=== PATIENT | female | born 1975 | race Caucasian/White ===

== ENCOUNTER 2018-01-28 16:09 | Inpatient (IN) ==
[2018-01-28 17:46] LABS: Baso % (Auto) 0.4 % (0.0-2.0); Eos % (Auto) 0.7 % (0.0-4.0); Hematocrit 39.1 % (35.0-46.0); Lymph # (Auto) 1.5 th/mm3 (1.0-4.8); Lymph % (Auto) 31.5 % (9.0-44.0); Mean Corpuscular HGB Conc 33.2 % (32.0-36.0); Mean Corpuscular Hemoglobin 26.4 pg (27.0-34.0); Mean Corpuscular Volume 79.7 fL (80.0-100.0); Mean Platelet Volume 8.1 fL (7.0-11.0); Mono # (Auto) 0.2 th/mm3 (0.0-0.9); Mono % (Auto) 4.1 % (0.0-8.0); Neut # (Auto) 3.1 th/mm3 (1.8-7.7); Neut % (Auto) 63.3 % (16.0-70.0); Platelet Count 430 th/mm3 (150-450); Red Blood Count 4.91 mil/mm3 (4.00-5.30); Red Cell Distribution Width 13.8 % (11.6-17.2); White Blood Count 4.9 th/mm3 (4.0-11.0)
[2018-01-28] MEDS ORDERED: LORazepam 1 MG Tablet PO ONE (18:03)
[2018-01-28 18:08] LABS: Alanine Aminotransferase 28 U/L (10-53); Albumin 4.2 g/dL (3.4-5.0); Anion Gap 5 meq/L (5-15); Aspartate Aminotransferase 20 U/L (15-37); Blood Urea Nitrogen 9 mg/dL (7-18); Calcium 8.7 mg/dL (8.5-10.1); Carbon Dioxide 25.7 meq/L (21.0-32.0); Chloride 113 meq/L (98-107); Glomerular Filtration Rate 70 mL/min (>89); Glucose,Random 100 mg/dL (74-106); Potassium 3.8 meq/L (3.5-5.1); Sodium 144 meq/L (136-145)
[2018-01-28 18:18] LABS: Alkaline Phosphatase 45 U/L (45-117)
--- NOTE | 2018-01-28 19:08 | ED ---
HPI General Chief Complaint: Psychiatric Symptoms Stated Complaint: Psych/EWPD Time Seen by Provider: 01/29/18 12:28 Source: patient Mode of arrival: ambulatory Limitations: no limitations History of Present Illness HPI Narrative: 42-year-old female presents to the emergency department under Barragan act. She is having suicidal thoughts about hanging herself. She has history of suicidal attempt by overdosing and hanging. Her daughter attempted suicide about 3 weeks ago and this is causing her more stress and depression. Reports feeling depressed, anxious. Denies illicit drug use or alcohol use. Reports tobacco use. Denies hallucinations. Symptoms are moderate to severe in severity. Onset unknown. Duration unknown. No known relieving factors. Takes Xanax for her anxiety, and last took it 2 days ago. Says she feels very anxious at this time. Situation aggravated by daughters attempted suicide, her mother has cancer, and her own personal health issues. Is requesting a nicotine patch. Denies chest pain, shortness of breath, abdominal pain, nausea , vomiting, change in urine or stool. Denies other significant past medical history. No known allergies. No primary care provider. No psychiatrist. Has no other medical complaints. No other modifying factors or associated signs and symptoms. Related Data Home Medications Medication Instructions Recorded Confirmed No Known Home Medications 01/28/18 01/28/18 Allergies Allergy/AdvReac Type Severity Reaction Status Date / Time No Known Allergies Allergy Unverified 01/28/18 16:28 Review of Systems ROS Unobtainable All other systems reviewed negative except as stated in HPI [facility] Medical History Medical History History of hysterectomy (Acute) Patient denies medical problems (Acute) Social History Social History Substance History: Active Abuse and Past History Second Hand Smoke Exposure: No Smoking Status: Current every day smoker Tobacco Type: Cigarettes How Often Do You Have a Drink Containing Alcohol: Never Recent Travel in [place] within the Last 8 Weeks: Yes Recent Out of Country Travel within the Last 8 Weeks: No Substance Abuse Detail Benzodiazepines: Substance Use Status: Active Route Used Substance Abuse: By Mouth Last Used: 01/25/18 Substance Abuse Comment: SEVERE ANXIETY/PTSD NOT PRESCRIBED XANAX Reason for Use: Calm Down Opiates: Substance Use Status: Sustained Remission Route Used Substance Abuse: By Mouth Last Used: 7 YEARS Immunization History Tetanus Immunization: Unsure Hx Influenza Vaccine This Season: No Exam Narrative Exam Narrative: GENERAL: Well-nourished, well-developed female patient , in no acute distress; tearful and crying SKIN: Warm and dry. HEAD: Atraumatic. Normocephalic. EYES: Pupils equal and round. ENT: Mucosa pink and moist. NECK: Supple. Trachea midline. CARDIOVASCULAR: Regular rate and rhythm. No murmur appreciated. RESPIRATORY: No accessory muscle use. Clear to auscultation. Breath sounds equal bilaterally. GASTROINTESTINAL: Abdomen soft, non-tender, nondistended. Hepatic and splenic margins not palpable. Bowel sounds are active 4 quadrants. MUSCULOSKELETAL: No obvious deformities. No clubbing. No cyanosis. No edema. BACK: No CVA tenderness. NEUROLOGICAL: Awake and alert. Oriented 3. No obvious cranial nerve deficits. Motor grossly within normal limits. Normal speech. Moves all extremities. 5/5 strength to all extremities. PSYCHIATRIC: No delusional thought processes. No hallucinations. Course Initial Documented Vital Signs Temperature 98.4 F 01/28/18 16:18 Pulse Rate 80 01/28/18 16:18 Respiratory Rate 16 01/28/18 16:18 Blood Pressure 120/71 01/28/18 16:18 Pulse Oximetry 99 01/28/18 16:18 Last Documented Vital Signs Temperature 98.0 F 02/01/18 18:00 Pulse Rate 70 02/01/18 18:00 Respiratory Rate 16 02/01/18 18:00 Blood Pressure 110/60 02/01/18 18:00 Pulse Oximetry 99 02/01/18 18:00 Medical Decision Making [facility] Narrative Medical decision making narrative: Patient presents under a Barragan act. Physical examination and vital signs are essentially unremarkable. Patient has no medical complaints to report. Psych screen has been ordered. If the laboratory results are unremarkable, the patient will be medically cleared for psychiatric evaluation and disposition. Differential Diagnosis Differential Diagnosis: Depression, anxiety, stress, suicidal ideation, medical clearance for psychiatric admission Lab Data Result diagrams: 01/28/18 16:26 01/30/18 08:26 Lab Results 01/28/18 01/28/18 01/28/18 Range/Units 16:26 16:26 16:26 WBC 4.9 (4.0-11.0) th/mm3 RBC 4.91 (4.00-5.30) mil/mm3 Hgb 13.0 (11.6-15.3) gm/dL Hct 39.1 (35.0-46.0) % MCV 79.7 L (80.0-100.0) fL MCH 26.4 L (27.0-34.0) pg MCHC 33.2 (32.0-36.0) % RDW 13.8 (11.6-17.2) % Plt Count 430 (150-450) th/mm3 MPV 8.1 (7.0-11.0) fL Neut % (Auto) 63.3 (16.0-70.0) % Lymph % (Auto) 31.5 (9.0-44.0) % [place] % (Auto) 4.1 (0.0-8.0) % Eos % (Auto) 0.7 (0.0-4.0) % Baso % (Auto) 0.4 (0.0-2.0) % Neut # (Auto) 3.1 (1.8-7.7) th/mm3 Lymph # (Auto) 1.5 (1.0-4.8) th/mm3 [place] # (Auto) 0.2 (0.0-0.9) th/mm3 Eos # (Auto) 0.0 (0.0-0.4) th/mm3 Baso # (Auto) 0.0 (0.0-0.2) th/mm3 WBC Differential . Differential Comment Auto diff final Sodium 144 (136-145) meq/L Potassium 3.8 (3.5-5.1) meq/L Chloride 113 H (98-107) meq/L Carbon Dioxide 25.7 (21.0-32.0) meq/L Anion Gap 5 (5-15) meq/L BUN 9 (7-18) mg/dL Creatinine 0.88 (0.50-1.00) mg/dL Estimated GFR 70 L (>89) mL/min Random Glucose 100 (74-106) mg/dL Hemoglobin A1c (4.3-6.0) % Calcium 8.7 (8.5-10.1) mg/dL Total Bilirubin 0.3 (0.2-1.0) mg/dL AST 20 (15-37) U/L ALT 28 (10-53) U/L Alkaline Phosphatase 45 (45-117) U/L Total Protein 8.0 (6.4-8.2) g/dL Albumin 4.2 (3.4-5.0) g/dL Triglycerides (42-150) mg/dL Cholesterol (120-200) mg/dL LDL Cholesterol, Calc (0-99) mg/dL HDL Cholesterol (40.0-60.0) mg/dL Cholesterol/HDL Ratio Ratio TSH 0.310 L (0.358-3.740) uIU/mL Urine Color (Yellw/Straw) Urine Clarity (Clear) Urine pH (5.0-8.5) Ur Specific [place] (1.002-1.035) Urine Protein (Neg-Trace) mg/dL Urine Glucose (UA) (Negative) mg/dL Urine Ketones (Negative) mg/dL Urine Occult Blood (Negative) Urine Nitrate (Negative) Urine Bilirubin (Negative) Urine Urobilinogen (Less than 2) mg/dL Ur Leukocyte Esterase (Negative) Urine RBC (0-3) /hpf Urine WBC (0-5) /hpf Ur Squamous Epith Cells (0-5) /hpf Urine Bacteria (None) /hpf Urine Mucus (Occasional) /lpf Micro UA Comment Urine Culture Comments Salicylates 4.5 (2.8-20.0) mg/dL Urine Opiates Screen (Neg) Acetaminophen Less than 2.0 L (10.0-30.0) mcg/mL Ur Barbiturates Screen (Neg) Ur Amphetamines Screen (Neg) U Benzodiazepines Scrn (Neg) Urine Cocaine Screen (Neg) U Cannabinoids Screen (Neg) Serum Alcohol Less than 3 (0-5) mg/dL 01/28/18 01/28/18 01/30/18 Range/Units 20:47 20:47 08:26 WBC (4.0-11.0) th/mm3 RBC (4.00-5.30) mil/mm3 Hgb (11.6-15.3) gm/dL Hct (35.0-46.0) % MCV (80.0-100.0) fL MCH (27.0-34.0) pg MCHC (32.0-36.0) % RDW (11.6-17.2) % Plt Count (150-450) th/mm3 MPV (7.0-11.0) fL Neut % (Auto) (16.0-70.0) % Lymph % (Auto) (9.0-44.0) % [place] % (Auto) (0.0-8.0) % Eos % (Auto) (0.0-4.0) % Baso % (Auto) (0.0-2.0) % Neut # (Auto) (1.8-7.7) th/mm3 Lymph # (Auto) (1.0-4.8) th/mm3 [place] # (Auto) (0.0-0.9) th/mm3 Eos # (Auto) (0.0-0.4) th/mm3 Baso # (Auto) (0.0-0.2) th/mm3 WBC Differential Differential Comment Sodium 143 (136-145) meq/L Potassium 3.6 (3.5-5.1) meq/L Chloride 111 H (98-107) meq/L Carbon Dioxide 25.5 (21.0-32.0) meq/L Anion Gap 7 (5-15) meq/L BUN 11 (7-18) mg/dL Creatinine 0.81 (0.50-1.00) mg/dL Estimated GFR 78 L (>89) mL/min Random Glucose 87 (74-106) mg/dL Hemoglobin A1c (4.3-6.0) % Calcium 8.8 (8.5-10.1) mg/dL Total Bilirubin (0.2-1.0) mg/dL AST (15-37) U/L ALT (10-53) U/L Alkaline Phosphatase (45-117) U/L Total Protein (6.4-8.2) g/dL Albumin (3.4-5.0) g/dL Triglycerides 119 (42-150) mg/dL Cholesterol 197 (120-200) mg/dL LDL Cholesterol, Calc 135 H (0-99) mg/dL HDL Cholesterol 38.1 L (40.0-60.0) mg/dL Cholesterol/HDL Ratio 5.17 Ratio TSH (0.358-3.740) uIU/mL Urine Color Yellow (Yellw/Straw) Urine Clarity Hazy H (Clear) Urine pH 6.0 (5.0-8.5) Ur Specific [place] 1.018 (1.002-1.035) Urine Protein Negative (Neg-Trace) mg/dL Urine Glucose (UA) 50 (Negative) mg/dL Urine Ketones Trace H (Negative) mg/dL Urine Occult Blood Negative (Negative) Urine Nitrate Negative (Negative) Urine Bilirubin Negative (Negative) Urine Urobilinogen Less than 2 (Less than 2) mg/dL Ur Leukocyte Esterase Negative (Negative) Urine RBC 13 H (0-3) /hpf Urine WBC 3 (0-5) /hpf Ur Squamous Epith Cells 3 (0-5) /hpf Urine Bacteria Many H (None) /hpf Urine Mucus Many H (Occasional) /lpf Micro UA Comment Culture indicated Urine Culture Comments Culture indicated Salicylates (2.8-20.0) mg/dL Urine Opiates Screen Neg (Neg) Acetaminophen (10.0-30.0) mcg/mL Ur Barbiturates Screen Neg (Neg) Ur Amphetamines Screen Neg (Neg) U Benzodiazepines Scrn Pos H (Neg) Urine Cocaine Screen Neg (Neg) U Cannabinoids Screen Neg (Neg) Serum Alcohol (0-5) mg/dL 01/30/18 Range/Units 08:26 WBC (4.0-11.0) th/mm3 RBC (4.00-5.30) mil/mm3 Hgb (11.6-15.3) gm/dL Hct (35.0-46.0) % MCV (80.0-100.0) fL MCH (27.0-34.0) pg MCHC (32.0-36.0) % RDW (11.6-17.2) % Plt Count (150-450) th/mm3 MPV (7.0-11.0) fL Neut % (Auto) (16.0-70.0) % Lymph % (Auto) (9.0-44.0) % [place] % (Auto) (0.0-8.0) % Eos % (Auto) (0.0-4.0) % Baso % (Auto) (0.0-2.0) % Neut # (Auto) (1.8-7.7) th/mm3 Lymph # (Auto) (1.0-4.8) th/mm3 [place] # (Auto) (0.0-0.9) th/mm3 Eos # (Auto) (0.0-0.4) th/mm3 Baso # (Auto) (0.0-0.2) th/mm3 WBC Differential Differential Comment Sodium (136-145) meq/L Potassium (3.5-5.1) meq/L Chloride (98-107) meq/L Carbon Dioxide (21.0-32.0) meq/L Anion Gap (5-15) meq/L BUN (7-18) mg/dL Creatinine (0.50-1.00) mg/dL Estimated GFR (>89) mL/min Random Glucose (74-106) mg/dL Hemoglobin A1c 5.3 (4.3-6.0) % Calcium (8.5-10.1) mg/dL Total Bilirubin (0.2-1.0) mg/dL AST (15-37) U/L ALT (10-53) U/L Alkaline Phosphatase (45-117) U/L Total Protein (6.4-8.2) g/dL Albumin (3.4-5.0) g/dL Triglycerides (42-150) mg/dL Cholesterol (120-200) mg/dL LDL Cholesterol, Calc (0-99) mg/dL HDL Cholesterol (40.0-60.0) mg/dL Cholesterol/HDL Ratio Ratio TSH (0.358-3.740) uIU/mL Urine Color (Yellw/Straw) Urine Clarity (Clear) Urine pH (5.0-8.5) Ur Specific [place] (1.002-1.035) Urine Protein (Neg-Trace) mg/dL Urine Glucose (UA) (Negative) mg/dL Urine Ketones (Negative) mg/dL Urine Occult Blood (Negative) Urine Nitrate (Negative) Urine Bilirubin (Negative) Urine Urobilinogen (Less than 2) mg/dL Ur Leukocyte Esterase (Negative) Urine RBC (0-3) /hpf Urine WBC (0-5) /hpf Ur Squamous Epith Cells (0-5) /hpf Urine Bacteria (None) /hpf Urine Mucus (Occasional) /lpf Micro UA Comment Urine Culture Comments Salicylates (2.8-20.0) mg/dL Urine Opiates Screen (Neg) Acetaminophen (10.0-30.0) mcg/mL Ur Barbiturates Screen (Neg) Ur Amphetamines Screen (Neg) U Benzodiazepines Scrn (Neg) Urine Cocaine Screen (Neg) U Cannabinoids Screen (Neg) Serum Alcohol (0-5) mg/dL Discharge Plan Discharge Disposition Patient Disposition: 30 Still Patient Discharge Condition Condition: Stable Physicians Team ED Provider: Lux Doran ED Midlevel Provider: Elis Griffin Primary Care Provider: Primary Care Anita Driver Attending Provider: Prashant Chaney Other Providers: Utilizer, High Service Discharge Interventions Interventions: ED Discharge Assessment Last Done: 01/29/18 14:22 Status ED Status: Left Department Discharge Information Discharge Date/Time: 01/29/18 14:23
[2018-01-28 21:07] LABS: Bacteria,Urine Many /hpf; Bilirubin,Urine Negative (Negative); Clarity,Urine Hazy (Clear); Color,Urine Yellow (Yellw/Straw); Glucose,Urine (UA) 50 mg/dL (Negative); Leukocyte Esterase,Urine Negative (Negative); Mucus,Urine Many /lpf (Occasional); Nitrite,Urine Negative (Negative); Specific Gravity,Urine 1.018 (1.002-1.035); Squamous Epithelial Cell,Urine 3 /hpf (0-5)
[2018-01-28 21:11] LABS: Amphetamine Screen,Urine Neg (Neg); Barbiturate Screen,Urine Neg (Neg); Cannabinoid Screen,Urine Neg (Neg); Cocaine Screen,Urine Neg (Neg)
[2018-01-28 21:13] LABS: Opiate Screen,Urine Neg (Neg)
[2018-01-29] MEDS ORDERED: Aluminum/Magnesium/Simethacone Susp 30 ML UDC PO PRN (13:49)
--- NOTE | 2018-01-29 14:49 | ED ---
HPI - Psych - General Source: patient Mode of arrival: ambulatory Limitations: no limitations - History of Present Illness MD complaint: suicidal ideation, feels depressed Onset (ago): week(s) Duration: getting worse History of same: Yes Relieving factors: none Exacerbating factors: drug use (Xanax) Context: recent drug abuse, significant life stressor Associated psychiatric symptoms: depression, suicidal ideation - General Chief Complaint: Psychiatric Symptoms Stated Complaint: Psych/EWPD Time Seen by Provider: 01/29/18 12:28 - History of Present Illness HPI Narrative: This is a 42-year-old single female who presents to this facility under Barragan act for calling suicide hotline reporting suicidal ideation. She is previously unknown to this facility. Reviewed electronic medical record, labs, discuss case with staff. Patient's toxicology screen is positive for benzodiazepines. Patient was evaluated in her room and J pod. She was found lying on her bed awake, alert, and oriented 4. Is disheveled and tearful. Her mood is sad and her affect is sad as well. She endorses suicidal ideation. She denies homicidal ideation, auditory or visual hallucinations. I can elicit no delusional material. There is no internal stimulation or evidence of thought blocking. This patient reports that she is "severely depressed". Additionally, she states that she has been taking Xanax which he obtains from the street for approximately 1 year now. 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 She advises that she lives with her mother had breast cancer. She indicates numerous external stressors of late including: Her mother's medical condition, hysterectomy 3 months ago, recent suicide attempt by her daughter, and the of her approximately 2 years ago. She reports previous suicide attempt by hanging when she was approximately 30 years old. She reports diagnoses of depression, anxiety, and PTSD. She states that she receives SSI. However, she denies any outpatient treatment since moving to [place] approximately 4 years ago. She reports anhedonia, insomnia, and decreased appetite. She is extremely tearful and tremulous throughout the interview. She reports family suicide attempts and diagnoses on both sides. (Katarina Turpin) - Related Data Home Medications Medication Instructions Recorded Confirmed No Known Home Medications 01/28/18 01/28/18 Allergies Allergy/AdvReac Type Severity Reaction Status Date / Time No Known Allergies Allergy Unverified 01/28/18 16:28 Review of Systems All other systems reviewed negative except as stated in HPI PMFSH - History History Provided By: Patient - Medical History Medical History: Medical History (Last Reviewed 01/29/18 @ 14:44 by ALICIA Gonzalez) History of hysterectomy Patient denies medical problems - Surgical History Surgical History: Surgical History (Last Reviewed 01/29/18 @ 14:44 by ALICIA Gonzalez) H/O tubal ligation - Tobacco History Second Hand Smoke Exposure: Yes Tobacco Use In Past 30 Days: Yes (1PPD) Smoking Status: Current every day smoker Tobacco Type: Cigarettes - Alcohol History How Often Do You Have a Drink Containing Alcohol: Never - Substance Use History Substance History: Active Abuse - Substance Use Type Benzodiazepines Status: Active Route Used: By Mouth Last Used: 01/25/18 Reason for Use: Calm Down Comment: SEVERE ANXIETY/PTSD. NOT PRESCRIBED XANAX Opiates Status: Sustained Remission Route Used: By Mouth Last Used: 7 YEARS - Travel History Recent Travel in the [facility] Within the Last 8 Weeks: Yes Recent Travel Out of the Country Within the Last 8 Weeks: No - Immunization History Tetanus Immunization: Unsure Hx Influenza Vaccine This Season: No Psychiatric History - Psychiatric History Psychiatric Treatment History: History of Psychiatric Treatment History of Inpatient Treatment: Yes Firearms in Home: No - Legal History Denies (Katarina Turpin) - Family Psychiatric History Reports that her daughter recently attempted suicide. (Katarina Turpin) Physical Exam - General Limitations: no limitations Initial Documented Vital Signs Temperature 98.4 F 01/28/18 16:18 Pulse Rate 80 01/28/18 16:18 Respiratory Rate 16 01/28/18 16:18 Blood Pressure 120/71 01/28/18 16:18 Pulse Oximetry 99 01/28/18 16:18 Last Documented Vital Signs Temperature 99.1 F 01/28/18 22:50 Pulse Rate 61 01/28/18 22:50 Respiratory Rate 16 01/28/18 18:20 Blood Pressure 118/73 01/28/18 22:50 Pulse Oximetry 99 01/28/18 22:50 MDM - Psych - Diagnosis (1) Major depressive disorder Status: Acute (2) Benzodiazepine withdrawal Status: Acute (3) Suicidal ideation Status: Acute - Lab Data Result diagrams: 01/28/18 16:26 01/28/18 16:26 - MDM Narrative Medical decision making narrative: While this patient is currently withdrawing from Xanax, she also reports extensive mental health history for which she is receiving Social Security disability. Due to her contacting the suicide hotline and her continuing endorsement of suicidal ideation and out of an over abundance of caution I am admitting her for further evaluation and treatment as deemed necessary to a locked inpatient psychiatric unit. I obtained consent and have ordered as needed Atarax as it seems to be helping her with her withdrawal symptoms. (Katarina Turpin) - Lab Data Lab Results 01/28/18 01/28/18 01/28/18 Range/Units 16:26 16:26 16:26 WBC 4.9 (4.0-11.0) th/mm3 RBC 4.91 (4.00-5.30) mil/mm3 Hgb 13.0 (11.6-15.3) gm/dL Hct 39.1 (35.0-46.0) % MCV 79.7 L (80.0-100.0) fL MCH 26.4 L (27.0-34.0) pg MCHC 33.2 (32.0-36.0) % RDW 13.8 (11.6-17.2) % Plt Count 430 (150-450) th/mm3 MPV 8.1 (7.0-11.0) fL Neut % (Auto) 63.3 (16.0-70.0) % Lymph % (Auto) 31.5 (9.0-44.0) % [place] % (Auto) 4.1 (0.0-8.0) % Eos % (Auto) 0.7 (0.0-4.0) % Baso % (Auto) 0.4 (0.0-2.0) % Neut # (Auto) 3.1 (1.8-7.7) th/mm3 Lymph # (Auto) 1.5 (1.0-4.8) th/mm3 [place] # (Auto) 0.2 (0.0-0.9) th/mm3 Eos # (Auto) 0.0 (0.0-0.4) th/mm3 Baso # (Auto) 0.0 (0.0-0.2) th/mm3 WBC Differential . Differential Comment Auto diff final Sodium 144 (136-145) meq/L Potassium 3.8 (3.5-5.1) meq/L Chloride 113 H (98-107) meq/L Carbon Dioxide 25.7 (21.0-32.0) meq/L Anion Gap 5 (5-15) meq/L BUN 9 (7-18) mg/dL Creatinine 0.88 (0.50-1.00) mg/dL Estimated GFR 70 L (>89) mL/min Random Glucose 100 (74-106) mg/dL Calcium 8.7 (8.5-10.1) mg/dL Total Bilirubin 0.3 (0.2-1.0) mg/dL AST 20 (15-37) U/L ALT 28 (10-53) U/L Alkaline Phosphatase 45 (45-117) U/L Total Protein 8.0 (6.4-8.2) g/dL Albumin 4.2 (3.4-5.0) g/dL TSH 0.310 L (0.358-3.740) uIU/mL Urine Color (Yellw/Straw) Urine Clarity (Clear) Urine pH (5.0-8.5) Ur Specific [place] (1.002-1.035) Urine Protein (Neg-Trace) mg/dL Urine Glucose (UA) (Negative) mg/dL Urine Ketones (Negative) mg/dL Urine Occult Blood (Negative) Urine Nitrate (Negative) Urine Bilirubin (Negative) Urine Urobilinogen (Less than 2) mg/dL Ur Leukocyte Esterase (Negative) Urine RBC (0-3) /hpf Urine WBC (0-5) /hpf Ur Squamous Epith Cells (0-5) /hpf Urine Bacteria (None) /hpf Urine Mucus (Occasional) /lpf Micro UA Comment Urine Culture Comments Salicylates 4.5 (2.8-20.0) mg/dL Urine Opiates Screen (Neg) Acetaminophen Less than 2.0 L (10.0-30.0) mcg/mL Ur Barbiturates Screen (Neg) Ur Amphetamines Screen (Neg) U Benzodiazepines Scrn (Neg) Urine Cocaine Screen (Neg) U Cannabinoids Screen (Neg) Serum Alcohol Less than 3 (0-5) mg/dL 01/28/18 01/28/18 Range/Units 20:47 20:47 WBC (4.0-11.0) th/mm3 RBC (4.00-5.30) mil/mm3 Hgb (11.6-15.3) gm/dL Hct (35.0-46.0) % MCV (80.0-100.0) fL MCH (27.0-34.0) pg MCHC (32.0-36.0) % RDW (11.6-17.2) % Plt Count (150-450) th/mm3 MPV (7.0-11.0) fL Neut % (Auto) (16.0-70.0) % Lymph % (Auto) (9.0-44.0) % [place] % (Auto) (0.0-8.0) % Eos % (Auto) (0.0-4.0) % Baso % (Auto) (0.0-2.0) % Neut # (Auto) (1.8-7.7) th/mm3 Lymph # (Auto) (1.0-4.8) th/mm3 [place] # (Auto) (0.0-0.9) th/mm3 Eos # (Auto) (0.0-0.4) th/mm3 Baso # (Auto) (0.0-0.2) th/mm3 WBC Differential Differential Comment Sodium (136-145) meq/L Potassium (3.5-5.1) meq/L Chloride (98-107) meq/L Carbon Dioxide (21.0-32.0) meq/L Anion Gap (5-15) meq/L BUN (7-18) mg/dL Creatinine (0.50-1.00) mg/dL Estimated GFR (>89) mL/min Random Glucose (74-106) mg/dL Calcium (8.5-10.1) mg/dL Total Bilirubin (0.2-1.0) mg/dL AST (15-37) U/L ALT (10-53) U/L Alkaline Phosphatase (45-117) U/L Total Protein (6.4-8.2) g/dL Albumin (3.4-5.0) g/dL TSH (0.358-3.740) uIU/mL Urine Color Yellow (Yellw/Straw) Urine Clarity Hazy H (Clear) Urine pH 6.0 (5.0-8.5) Ur Specific [place] 1.018 (1.002-1.035) Urine Protein Negative (Neg-Trace) mg/dL Urine Glucose (UA) 50 (Negative) mg/dL Urine Ketones Trace H (Negative) mg/dL Urine Occult Blood Negative (Negative) Urine Nitrate Negative (Negative) Urine Bilirubin Negative (Negative) Urine Urobilinogen Less than 2 (Less than 2) mg/dL Ur Leukocyte Esterase Negative (Negative) Urine RBC 13 H (0-3) /hpf Urine WBC 3 (0-5) /hpf Ur Squamous Epith Cells 3 (0-5) /hpf Urine Bacteria Many H (None) /hpf Urine Mucus Many H (Occasional) /lpf Micro UA Comment Culture indicated Urine Culture Comments Culture indicated Salicylates (2.8-20.0) mg/dL Urine Opiates Screen Neg (Neg) Acetaminophen (10.0-30.0) mcg/mL Ur Barbiturates Screen Neg (Neg) Ur Amphetamines Screen Neg (Neg) U Benzodiazepines Scrn Pos H (Neg) Urine Cocaine Screen Neg (Neg) U Cannabinoids Screen Neg (Neg) Serum Alcohol (0-5) mg/dL
[2018-01-29] MEDS ORDERED: Haloperidol Inj 5 MG/ML Ampul IV.PUSH PRN (15:44)
[2018-01-29] MEDS: LORazepam 1 MG Tablet PO PRN ×2 (16:23→21:23)
[2018-01-29] MEDS: Naproxen 250 MG Tablet PO PRN (21:13)
[2018-01-30 09:08] LABS: Calcium 8.8 mg/dL (8.5-10.1); Carbon Dioxide 25.5 meq/L (21.0-32.0); Potassium 3.6 meq/L (3.5-5.1)
[2018-01-30 09:12] LABS: Chol/HDL Ratio 5.17 Ratio; HDL Cholesterol 38.1 mg/dL (40.0-60.0)
[2018-01-30] MEDS: LORazepam 1 MG Tablet PO PRN ×2 (09:17→21:21)
[2018-01-30] MEDS: Naproxen 250 MG Tablet PO PRN ×2 (09:17→21:20)
[2018-01-30] MEDS: buPROPion 100 MG ER 12 HR Tablet PO SCH ×2 (12:15→21:20)
[2018-01-30 17:35] LABS: Hemoglobin A1c 5.3 % (4.3-6.0)
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
[2018-01-30] MEDS ORDERED: Acetaminophen 500 MG Tablet PO SCH (22:11)
[2018-01-30] MEDS ORDERED: Acetaminophen 500 MG Tablet PO ONE (23:30)
[2018-01-31] MEDS: buPROPion 100 MG ER 12 HR Tablet PO SCH ×2 (10:06→20:52)
[2018-01-31] MEDS: Naproxen 250 MG Tablet PO PRN ×2 (10:33→20:52)
[2018-01-31] MEDS: LORazepam 1 MG Tablet PO PRN ×2 (10:34→13:42)
--- NOTE | 2018-01-31 13:21 | P.PNPSY ---
Subjective Remarks: Patient seen for follow, chart reviewed. Discussion nursing staff reported the patient had difficulty sleeping last evening had received Atarax at 3M which helped, patient scoring 10 on CIWA protocol. Patient was found lying hospital bed noted B, cooperative. Patient states that she has difficulty sleeping last evening and that she is taking Benadryl in the past has not helped but that the Atarax did assist in getting her to sleep last evening. Patient states her mood has been "up and down" stating feeling disgusted with herself reflecting on unmet achievements as well as feeling that she is going through a "midlife crisis". Patient denies any side effects from current medications and that her mood today is "blah" and continues to endorse suicide ideations at this time. Patient was encouraged to participate in groups and activities as well as maintain personal hygiene which she agreed able to try to do today. Review of Systems All other systems reviewed negative except as stated in HPI Mental Status Examination Appearance: Disheveled Consciousness: Alert Orientation: x4 Motor Activity: Normal gait Speech: Unremarkable Language: Adequate Fund of Knowledge: Inadequate Attention and Concentration: Adequate Memory: Unremarkable Mood: Sad Affect: Sad, Other (Tearful) Thought Process & Associations: Intact, Linear Thought Content: Appropriate Hallucination Type: None Delusion Type: None Suicidal Ideation: Yes Suicidal Plan: No Suicidal Intention: No Homicidal Ideation: No Homicidal Plan: No Homicidal Intention: No Insight: Fair Judgment: Impulsive Assessment and Plan - Assessment (1) Major depressive disorder Code(s): F32.9 - Major depressive disorder, single episode, unspecified Status : Acute - Plan Plan: Patient this time continues with depressed mood along with suicide ideations, having difficulty sleeping at night. We will add hydroxyzine 50 mg p.o. at bedtime for sleep disturbance. We will continue patient on CIWA protocol, will continue monitor mood and behavior. Discharge planning a progress. Justification for Continued Inpatient Stay: At risk for further decompensation if at lower level of care
[2018-01-31] MEDS ORDERED: Acetaminophen 500 MG Tablet PO ONE (20:00)
[2018-02-01] MEDS: Naproxen 250 MG Tablet PO PRN ×2 (08:43→21:20)
[2018-02-01] MEDS: buPROPion 100 MG ER 12 HR Tablet PO SCH ×2 (08:44→21:19)
[2018-02-01] MEDS: LORazepam 1 MG Tablet PO PRN (10:34)
--- NOTE | 2018-02-01 15:10 | P.PNPSY ---
Subjective Remarks: Patient seen for follow-up, chart reviewed. Discussion with nursing staff reported that the patient with sleep disturbance, denies SI, CIWA score of 8. Patient was found sitting on hospital bed, calm and cooperative. States her mood continues to be depressed, noted to tearful when reflecting on not having any family support. Appetite continues to be poor, has yet o attend groups but will try. Despite continued depressed mood and denying any SI today she states feeling hopeful. Review of Systems All other systems reviewed negative except as stated in HPI Mental Status Examination Appearance: Appropriate Consciousness: Alert Orientation: x4 Motor Activity: Normal gait Speech: Unremarkable Language: Adequate Fund of Knowledge: Inadequate Attention and Concentration: Adequate Memory: Unremarkable Mood: Sad Affect: Sad, Other (Tearful) Thought Process & Associations: Intact, Linear Thought Content: Appropriate Hallucination Type: None Delusion Type: None Suicidal Ideation: Yes (denies today) Suicidal Plan: No Suicidal Intention: No Homicidal Ideation: No Homicidal Plan: No Homicidal Intention: No Insight: Fair Judgment: Impulsive Assessment and Plan - Assessment (1) Major depressive disorder Code(s): F32.9 - Major depressive disorder, single episode, unspecified Status : Acute - Plan Plan: Patient continues with depressed mood, denies SI and continues to exhibit some withdrawal symptoms. Continue CIWA, increase bupropion SR to 150mg PO BID, continues rest of medications. Continue to monitor mood and behavior. Continue to encourage patient to participate in groups and activities. Discharge planning in progress. Justification for Continued Inpatient Stay: At risk for further decompensation if at lower level of care.
[2018-02-01] MEDS: Ibuprofen 600 MG Tablet PO PRN ×2 (15:28→21:20)
[2018-02-02 05:58] VITALS: BP 110/60; PULSE 70; RESP 16; TEMP 98; O2SAT 99
[2018-02-02] MEDS: buPROPion 100 MG ER 12 HR Tablet PO SCH (09:57)
[2018-02-02] MEDS: Naproxen 250 MG Tablet PO PRN (09:58)
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
== END 2018-02-02 17:20 | disposition home or self-care (01) ==
LOC: NEPJ 16:09 → NEDA 01-29 13:58 → H260 01-29 14:24
PROVIDERS: ADMIT Student in an Organized Health Care Education/Training Program; ATTEND Student in an Organized Health Care Education/Training Program